=== PATIENT | female | born 1990 | race Caucasian/White ===

== ENCOUNTER 2022-01-31 15:05 | Emergency (ER) | payer BC, OTHER ==
[2022-01-31 16:00] VITALS: RESP 16; TEMP 98
--- NOTE | 2022-01-31 16:23 | ED ---
Allergic Reaction HPI - General Chief complaint: Allergic Reaction Stated complaint: allergic reaction Time Seen by Provider: 01/31/22 16:05 Source: patient Mode of arrival: ambulatory Limitations: no limitations - History of Present Illness Initial Comments: 31-year-old female with a benign past medical history who presents after see her doctor today the receiving a Depo-Medrol shot. She had woken up with swollen lips never having this before mentation is suspicious for angioedema. She states the lip swelling is improved when she started developing a sharp headache going from the base of her neck up over her scalp also left-sided chest pain 4-5 /10 severity. Headache was sharp the chest pain is dull. It is intermittent. No palpitations no fevers chills sweats cough or other symptoms. The patient is a nonsmoker. Patient also complains some intermittent nausea. She does state when she gets nauseated she has a purple color to her face. MD Complaint: allergic reaction, other - Related Data Home Medications Medication Instructions Recorded Confirmed Pnv,Calcium 72/Iron/Folic Acid 1 tab PO DAILY 06/13/15 06/13/15 [ Plus Tablet] Allergies Allergy/AdvReac Type Severity Reaction Status Date / Time erythromycin ethylsuccinate Allergy Unknown Verified 01/31/22 15:11 [From Pediazole] Childhood sulfisoxazole acetyl Allergy Unknown Verified 01/31/22 15:11 [From Pediazole] Childhood Review of Systems ROS Statement: Those systems with pertinent positive or pertinent negative responses have been documented in the HPI. ROS Other: All systems not noted in ROS Statement are negative. Past Medical History Past Medical History: No Reported History History of Any Multi-Drug Resistant Organisms: None Reported Past Surgical History: No Surgical Hx Reported Additional Past Surgical History / Comment(s): breast augmentation Past Anesthesia/Blood Transfusion Reactions: No Reported Reaction Past Psychological History: No Psychological Hx Reported Smoking Status: Never smoker Past Alcohol Use History: None Reported Past Drug Use History: None Reported - Past Family History Father Family Medical History: No Reported History General Exam - General Exam Comments Initial Comments: This is a well-developed asthenic appearing female who is awake alert oriented 4 Limitations: no limitations General appearance: alert, anxious Head exam: Present: atraumatic, normocephalic, normal inspection Eye exam: Present: normal appearance, PERRL, EOMI. Absent: scleral icterus, conjunctival injection, periorbital swelling ENT exam: Present: normal exam, mucous membranes moist Neck exam: Present: normal inspection, tenderness, full ROM, other (No stridor JVD or bruits additionally the patient does have tenderness palpation over the paraspinous musculature but no spinous process tenderness. No step-off or crepitation). Absent: meningismus, lymphadenopathy Respiratory exam: Present: normal lung sounds bilaterally, chest wall tenderness (Is palpation along the left lateral costal sternal margin no step-off or crep itation). Absent: respiratory distress, wheezes, rales, rhonchi, stridor Cardiovascular Exam: Present: regular rate, normal rhythm, normal heart sounds. Absent: systolic murmur, diastolic murmur, rubs, gallop, clicks GI/Abdominal exam: Present: soft, normal bowel sounds. Absent: distended, tenderness, guarding, rebound, rigid Extremities exam: Present: normal inspection, full ROM, normal capillary refill. Absent: tenderness, pedal edema, joint swelling, calf tenderness Back exam: Present: normal inspection Neurological exam: Present: alert, oriented X3, CN II-XII intact Psychiatric exam: Present: normal affect, normal mood Skin exam: Present: warm, dry, intact, normal color. Absent: rash Course Vital Signs 01/31/22 01/31/22 15:07 15:58 Temperature 98.3 F 98.0 F Pulse Rate 111 H 91 Respiratory 20 16 Rate Blood Pressure 114/73 105/66 O2 Sat by Pulse 98 98 Oximetry - Reevaluation(s) Reevaluation #1: 01/31/22 17:38 The patient did demonstrate an elevated d-dimer and CT angios was ordered with results pending at this time. Medical Decision Making - Medical Decision Making I did discuss findings with the patient imaging is negative at this time the patient has improved with respect to her edema the lips. The presentation is consistent with angioedema. The other symptoms may be related to the Depo- Medrol shot. Patient also demonstrate evidence of costochondritis. Patient be discharged we did discuss taking Benadryl when necessary. Patient does demonstrate mild hypomagnesemia will be recommended that she take magnesium supplementation. - Lab Data Result diagrams: 01/31/22 16:30 01/31/22 16:30 Lab Results 01/31/22 01/31/22 01/31/22 Range/Units 16:30 16:30 16:30 WBC 7.0 (3.8-10.6) k/uL RBC 4.50 (3.80-5.40) m/uL Hgb 14.3 (11.4-16.0) gm/dL Hct 41.3 (34.0-46.0) % MCV 91.7 (80.0-100.0) fL MCH 31.8 (25.0-35.0) pg MCHC 34.7 (31.0-37.0) g/dL RDW 12.6 (11.5-15.5) % Plt Count 162 (150-450) k/uL MPV 8.0 Neutrophils % (Manual) 81 % Band Neuts % (Manual) 12 % Lymphocytes % (Manual) 5 % Monocytes % (Manual) 1 % Metamyelocytes % 1 % Neutrophils # (Manual) 6.50 (1.3-7.7) k/uL Lymphocytes # (Manual) 0.35 L (1.0-4.8) k/uL Monocytes # (Manual) 0.07 (0-1.0) k/uL Metamyelocytes # (Man) 0.07 H (0) k/uL Nucleated RBCs 0 (0-0) /100 WBC Manual Slide Review Performed PT 10.1 (9.0-12.0) sec INR 1.0 (<1.2) APTT 22.1 (22.0-30.0) sec D-Dimer 1.23 H (<0.60) mg/L FEU Sodium 138 (137-145) mmol/L Potassium 3.6 (3.5-5.1) mmol/L Chloride 105 (98-107) mmol/L Carbon Dioxide 22 (22-30) mmol/L Anion Gap 11 mmol/L BUN 15 (7-17) mg/dL Creatinine 0.69 (0.52-1.04) mg/dL Est GFR (CKD-EPI)AfAm >90 (>60 ml/min/1.73 sqM) Est GFR (CKD-EPI)NonAf >90 (>60 ml/min/1.73 sqM) Glucose 118 H (74-99) mg/dL Calcium 8.7 (8.4-10.2) mg/dL Magnesium 1.5 L (1.6-2.3) mg/dL Total Bilirubin 0.7 (0.2-1.3) mg/dL AST 27 (14-36) U/L ALT 18 (4-34) U/L Alkaline Phosphatase 65 (38-126) U/L Troponin I (0.000-0.034) ng/mL Total Protein 6.8 (6.3-8.2) g/dL Albumin 4.1 (3.5-5.0) g/dL Lipase 114 (23-300) U/L 01/31/22 Range/Units 16:30 WBC (3.8-10.6) k/uL RBC (3.80-5.40) m/uL Hgb (11.4-16.0) gm/dL Hct (34.0-46.0) % MCV (80.0-100.0) fL MCH (25.0-35.0) pg MCHC (31.0-37.0) g/dL RDW (11.5-15.5) % Plt Count (150-450) k/uL MPV Neutrophils % (Manual) % Band Neuts % (Manual) % Lymphocytes % (Manual) % Monocytes % (Manual) % Metamyelocytes % % Neutrophils # (Manual) (1.3-7.7) k/uL Lymphocytes # (Manual) (1.0-4.8) k/uL Monocytes # (Manual) (0-1.0) k/uL Metamyelocytes # (Man) (0) k/uL Nucleated RBCs (0-0) /100 WBC Manual Slide Review PT (9.0-12.0) sec INR (<1.2) APTT (22.0-30.0) sec D-Dimer (<0.60) mg/L FEU Sodium (137-145) mmol/L Potassium (3.5-5.1) mmol/L Chloride (98-107) mmol/L Carbon Dioxide (22-30) mmol/L Anion Gap mmol/L BUN (7-17) mg/dL Creatinine (0.52-1.04) mg/dL Est GFR (CKD-EPI)AfAm (>60 ml/min/1.73 sqM) Est GFR (CKD-EPI)NonAf (>60 ml/min/1.73 sqM) Glucose (74-99) mg/dL Calcium (8.4-10.2) mg/dL Magnesium (1.6-2.3) mg/dL Total Bilirubin (0.2-1.3) mg/dL AST (14-36) U/L ALT (4-34) U/L Alkaline Phosphatase (38-126) U/L Troponin I <0.012 (0.000-0.034) ng/mL Total Protein (6.3-8.2) g/dL Albumin (3.5-5.0) g/dL Lipase (23-300) U/L - EKG Data -: EKG Interpreted by Me EKG Comments: EKG interpreted by me shows a sinus rhythm of 80 MI interval 143 QRS duration 71 QT since QTC 374/411 indeterminate axis low-voltage - Radiology Data Interpreted by me: Imaging reviewed by me no evidence of pulmonary embolus no acute processes seen at this time. Disposition Clinical Impression: Angioedema, Costochondritis, Medication reaction Disposition: HOME SELF-CARE Condition: Good Instructions (If sedation given, give patient instructions): Angioedema (ED), Hypomagnesemia (ED), Costochondritis (ED) Is patient prescribed a controlled substance at d/c from ED?: No Referrals: Wellington Hughes MD [Primary Care Provider] - 1-2 days Decision Date: 01/31/22 Decision Time: 18:16
--- NOTE | 2022-01-31 16:53 | XR ---
EXAMINATION TYPE: XR chest 2V DATE OF EXAM: 01/31/2022 4:49 PM COMPARISON: None TECHNIQUE: XR chest 2V Frontal and lateral views of the chest. CLINICAL INDICATION:Female, 31 years old with history of Chest Pain; FINDINGS: Lungs/Pleura: There is no evidence of pleural effusion, focal consolidation, or pneumothorax. Pulmonary vascularity: Unremarkable. Heart/mediastinum: Cardiomediastinal silhouette is unremarkable. Musculoskeletal: No acute osseous pathology. IMPRESSION: No acute cardiopulmonary disease/process.
[2022-01-31 16:55] LABS: ALT 18 U/L (4-34); AST 27 U/L (14-36); African American GFR (CKD) >90 (>60 ml/min/1.73 sqM); Albumin 4.1 g/dL (3.5-5.0); Alkaline Phosphatase 65 U/L (38-126); Anion Gap 11 mmol/L; Blood Urea Nitrogen 15 mg/dL (7-17); Calcium 8.7 mg/dL (8.4-10.2); Carbon Dioxide 22 mmol/L (22-30); Chloride 105 mmol/L (98-107); Glucose 118 mg/dL (74-99); Lipase 114 U/L (23-300); Magnesium 1.5 mg/dL (1.6-2.3); Non-African American GFR(CKD) >90 (>60 ml/min/1.73 sqM); Potassium 3.6 mmol/L (3.5-5.1); Sodium 138 mmol/L (137-145); Total Bilirubin 0.7 mg/dL (0.2-1.3); Total Protein 6.8 g/dL (6.3-8.2)
[2022-01-31 16:56] LABS: Partial Thromboplastin Time 22.1 sec (22.0-30.0); Prothrombin Time 10.1 sec (9.0-12.0)
[2022-01-31 17:02] LABS: HCT 41.3 % (34.0-46.0); HGB 14.3 gm/dL (11.4-16.0); MCH 31.8 pg (25.0-35.0); MCHC 34.7 g/dL (31.0-37.0); MCV 91.7 fL (80.0-100.0); Platelet Count 162 k/uL (150-450); RDW 12.6 % (11.5-15.5)
[2022-01-31 17:18] LABS: Band Neutrophils % 12 %; Lymphocytes # (M) 0.35 k/uL (1.0-4.8); Metamyelocytes # (M) 0.07 k/uL (0); Metamyelocytes % 1 %; Monocytes # (M) 0.07 k/uL (0-1.0); Neutrophils % (M) 81 %; Nucleated Red Blood Cells 0 /100 WBC (0-0); Total Cells Counted 100
--- NOTE | 2022-01-31 17:48 | CT ---
CT CHEST FOR PULMONARY EMBOLISM. EXAMINATION TYPE: CT angio chest DATE OF EXAM: 01/31/2022 INDICATION: elevated d-dimer CT DLP: 176.8 mGycm, Automated exposure control for dose reduction was used. CONTRAST: Patient injected with 68 mL of Isovue 370. COMPARISON: None TECHNIQUE: CT of the chest is performed on a spiral scan at 2 mm thick sections. Study is performed with intravenous contrast timed for evaluation for pulmonary embolism. This will limit additional po rtions of the evaluation. 3-D MIP images reconstructed by the technologist are reviewed on the compu ter in the coronal and sagittal planes. FINDINGS: No persistent filling defects are evident to suggest an acute pulmonary embolism. No mediastinal or hilar adenopathy enlarged by CT criteria is evident. The ascending aorta diameter at the level of the main pulmonary artery is 2.4 cm. The main pulmonary artery diameter at the bifur cation is 1.8 cm. Lung windows are clear. Bilateral breast prostheses are present. Small hiatal hernia may be present Limited CT section through the upper abdomen are unremarkable. IMPRESSIONS: 1. No acute pulmonary embolism. 2. No acute pulmonary process.
[2022-01-31 18:13] VITALS: BP 98/67; PULSE 84
== END 2022-01-31 18:28 | disposition home or self-care (01) ==
LOC: EC 15:05
DX: T38.0X5A Adverse effect of glucocorticoids and synthetic analogues, initial encounter (principal); Z88.1 Allergy status to other antibiotic agents; Z88.2 Allergy status to sulfonamides; M94.0 Chondrocostal junction syndrome [Tietze]
CPT/HCPCS: 99284; 36415; 85379; 80053; 83690; 83735; 84484; 85025; 85610; 85730; 71046; 71275; Q9967

== ENCOUNTER → 2022-03-07 | Outpatient (CLI) | payer OTHER ==
--- NOTE | 2022-03-07 10:46 | USB ---
Technique: Method: Whole Breast Handheld. Findings: The whole breast of the right breast, the axilla of the right breast and the retroareolar of the right breast were scanned. There is a benign-appearing cyst with good through transmission and posterior wall enhancement at the 9:00 position 4 cm from the nipple at the palpable abnormality. This measures 0.8 x 0.4 x 0.7 cm. There is an adjacent area measuring 0.7 x 0.8 x 0.4 cm with good through transmission and posterior wall enhancement. Overall Assessment: Benign, BI-RAD 2 Management: Diagnostic Breast Ultrasound of the right breast in 6 months. A clinical breast exam by your physician is recommended on an annual basis and results should be correlated with mammographic findings. This exam should not preclude additional follow-up of suspicious palpable abnormalities. Results were given to the patient verbally at the time of exam. Electronically signed and approved by: Dwain Love D.O. Radiologis
== END | disposition home or self-care (01) ==
LOC: RADUSWWP 10:07
PROVIDERS: ATTEND Family Medicine
DX: N63.10 Unspecified lump in the right breast, unspecified quadrant (principal)

== ENCOUNTER → 2022-11-01 | Outpatient (CLI) | payer OTHER ==
--- NOTE | 2022-11-07 09:41 | USB ---
Reason for Exam: Follow-up at short interval from prior study. Prior Study Comparison: 03/07/2022 Right US breast RT, [facility]. Findings: The area of palpable concern of the right breast, the axilla of the right breast and the retroareolar of the right breast were scanned. Breast implants are redemonstrated. Noted adjacent to the implant are simple cyst measuring 0.9 x 0.3 cm and a second adjacent cyst measuring 4 x 4 x 3 mm. These are both located at the 9:00 position 4 cm from the nipple appear to be slightly smaller in size with prior study. No solid mass is detected.. Overall Assessment: Benign, BI-RAD 2 Management: Screening Mammogram of both breasts at age 41. A clinical breast exam by your physician is recommended on an annual basis and results should be correlated with mammographic findings. This exam should not preclude additional follow-up of suspicious palpable abnormalities. Results were given to the patient verbally at the time of exam. Electronically signed and approved by: Conrad Cummings M.D. Radiologis
== END | disposition home or self-care (01) ==
LOC: RADUSWWP 14:09
PROVIDERS: ATTEND Surgery
DX: N63.10 Unspecified lump in the right breast, unspecified quadrant (principal); N60.01 Solitary cyst of right breast; Z98.82 Breast implant status